=== PATIENT | male | born 1955 | race Caucasian/White ===

== ENCOUNTER 2016-11-01 17:47 | Inpatient (IN) | payer SELFPAY ==
[~2016-11-01] VITALS: Ht 172.7 cm; Wt 68.5 kg
[2016-11-01 18:34] LABS: HEMOGLOBIN 14.4 gm/dl (14.0-17.5); RED BLOOD COUNT 4.77 M/UL (4.20-5.50); WHITE BLOOD COUNT 9.8 K/UL (4.5-11.0)
[2016-11-01 18:55] LABS: BUN/CREATININE RATIO 17 (0-10)
[2016-11-02] MEDS ORDERED: GLUCOPHAGE 500500 MG PO (01:22)
[2016-11-02 07:34] LABS: HEMOGLOBIN 14.4 gm/dl (14.0-17.5); RED BLOOD COUNT 4.74 M/UL (4.20-5.50); WHITE BLOOD COUNT 7.6 K/UL (4.5-11.0)
[2016-11-02 07:54] LABS: BUN/CREATININE RATIO 13 (0-10)
[2016-11-03 05:37] LABS: HEMOGLOBIN 14.9 gm/dl (14.0-17.5); RED BLOOD COUNT 4.95 M/UL (4.20-5.50); WHITE BLOOD COUNT 9.5 K/UL (4.5-11.0)
[2016-11-03 06:04] LABS: BUN/CREATININE RATIO 17 (0-10)
[2016-11-04] MEDS ORDERED: ASPIRIN325 MG PO (15:05)
[2016-11-04] MEDS ORDERED: HABITROL 21 MG P1 EA TOP (15:08)
[2016-11-04] MEDS ORDERED: LIPITOR TAB 2020 MG PO (15:09)
[2016-11-04] MEDS ORDERED: MYCOSTATIN OINT15 GM TOP (15:09)
== END 2016-11-04 15:30 | disposition home or self-care (01) | DRG 69 ==
LOC: ER1 17:47 → ZEROF 22:55 → M/S 22:55
PROVIDERS: Emergency Medicine; ADMIT Internal Medicine
DX: G45.0 Vertebro-basilar artery syndrome (principal); G93.41 Metabolic encephalopathy; I99.8 Other disorder of circulatory system; H11.001 Unspecified pterygium of right eye; L57.0 Actinic keratosis; B36.9 Superficial mycosis, unspecified; R47.1 Dysarthria and anarthria; E11.9 Type 2 diabetes mellitus without complications; I10 Essential (primary) hypertension; F17.210 Nicotine dependence, cigarettes, uncomplicated; Z79.84 Long term (current) use of oral hypoglycemic drugs
CPT/HCPCS: ECHO; 36415; 70450; 70544; 70551; 71010; 80053; 80061; 80307; 81001; 82140; 82550; 82553; 82607; 82962; 83036; 83690; 83735; 83880; 84100; 84443; 84484; 85025; 85027; 85610; 85730; 86140; 87086; 92610; 93005; 93306; 93880; 96374; 97110; 97116; 97535; 99285; G0480; J0696; J1650; J7030; J7050